=== PATIENT | male | born 1965 | race Caucasian/White ===

== ENCOUNTER 2019-07-09 08:28 | Outpatient (CLI) | payer BC, OTHER ==
[~2019-07-09 08:28] MED LIST: IBUP-1986 PO
[2019-07-09 09:24] LABS: PARTIAL THROMBOPLASTIN TIME 30 SECONDS (22-32)
[2019-07-09 09:30] LABS: BASOPHILS % (AUTO) 0.5 % (0-1); EOSINOPHILS # (AUTO) 0.1 X10'3 (0-0.9); EOSINOPHILS % (AUTO) 0.9 % (0-6); HEMATOCRIT 49.3 % (42.0-52.0); HEMOGLOBIN 17.4 g/dl (14.0-17.9); LYMPHOCYTES # (AUTO) 1.6 X10'3 (1.1-4.8); MEAN CORPUSCULAR HEMOGLOBIN 30.5 PG (27.0-31.0); MEAN CORPUSCULAR HGB CONC 35.2 g/dL (33.0-36.5); MEAN CORPUSCULAR VOLUME 86.7 FL (78-98); MEAN PLATELET VOLUME 7.8 FL (7.4-10.4); MONOCYTES # (AUTO) 0.5 X10'3 (0-0.9); MONOCYTES % (AUTO) 6.3 % (2-12); NEUTROPHILS # (AUTO) 5.3 X10'3 (1.8-7.7); NEUTROPHILS % (AUTO) 70.3 % (42-75); PLATELET COUNT 236 X10'3 (140-440); RED BLOOD COUNT 5.69 X10'6 (4.70-6.10); RED CELL DISTRIBUTION WIDTH 12.8 % (11.5-14.5); WHITE BLOOD COUNT 7.5 X10'3 (4.5-11.0)
[2019-07-09 09:32] LABS: ALANINE AMINOTRANSFERASE 48 U/L (12-78); ALBUMIN 4.3 G/DL (3.4-5.0); ALBUMIN/GLOBULIN RATIO 1.3 (1.1-1.5); ALKALINE PHOSPHATASE 57 IU/L (46-116); ANION GAP 10 (8-16); ASPARTATE AMINO TRANSFERASE 20 U/L (10-37); BLOOD UREA NITROGEN 16 MG/DL (7-18); BUN/CREATININE RATIO 16.3 (5.4-32.0); CHLORIDE 104 MMOL/L (99-107); CREATININE 0.98 MG/DL (0.60-1.10); GLUCOSE 104 MG/DL (70-104); POTASSIUM 3.8 MMOL/L (3.5-5.1); SODIUM 139 MMOL/L (135-145); TOTAL PROTEIN 7.6 G/DL (6.4-8.2); eGFR 80 ML/MIN
== END 2019-07-09 23:59 | disposition home or self-care (01) ==
LOC: LAB 08:28
PROVIDERS: ATTEND Otolaryngology
DX: D69.1 Qualitative platelet defects (principal)
CPT/HCPCS: 36415; 80053; 85025; 85576; 85610; 85730

== ENCOUNTER 2021-02-27 08:22 | Day surgery (SDC) | payer OTHER ==
[2021-02-20 09:12] LABS: BASOPHILS # (AUTO) 0.1 X10'3 (0-0.2); BASOPHILS % (AUTO) 0.8 % (0-1); EOSINOPHILS # (AUTO) 0.1 X10'3 (0-0.9); EOSINOPHILS % (AUTO) 1.7 % (0-6); LYMPHOCYTES # (AUTO) 2.1 X10'3 (1.1-4.8); LYMPHOCYTES % (AUTO) 24.6 % (21-51); MEAN CORPUSCULAR HEMOGLOBIN 30.1 PG (27.0-31.0); MEAN CORPUSCULAR HGB CONC 34.5 g/dL (33.0-36.5); MEAN CORPUSCULAR VOLUME 87.4 FL (78-98); MEAN PLATELET VOLUME 7.7 FL (7.4-10.4); MONOCYTES # (AUTO) 0.5 X10'3 (0-0.9); MONOCYTES % (AUTO) 5.9 % (2-12); NEUTROPHILS # (AUTO) 5.7 X10'3 (1.8-7.7); PRE OP HEMATOCRIT 53.3 % (42.0-52.0); PRE OP PLATELET COUNT 237 X10'3 (140-440); RED BLOOD COUNT 6.09 X10'6 (4.70-6.10); RED CELL DISTRIBUTION WIDTH 12.8 % (11.5-14.5)
[2021-02-20 09:17] LABS: ALBUMIN 4.4 G/DL (3.4-5.0); ALBUMIN/GLOBULIN RATIO 1.2 (1.1-1.5); ALKALINE PHOSPHATASE 65 IU/L (46-116); BLOOD UREA NITROGEN 17 MG/DL (7-18); CALCIUM 9.2 MG/DL (8.5-10.1); CHLORIDE 105 MMOL/L (99-107); CREATININE 1.13 MG/DL (0.60-1.10); PRE OP ALT 42 U/L (30-65); PRE OP ANION GAP 8 (8-16); PRE OP AST 21 U/L (10-37); PRE OP GLUCOSE 103 MG/DL (70-104); PRE OP POTASSIUM 5.3 MMOL/L (3.4-5.1); PRE OP SODIUM 141 MMOL/L (135-145); TOTAL CARBON DIOXIDE 28.1 MMOL/L (24-32); TOTAL PROTEIN 8.1 G/DL (6.4-8.2); eGFR 68 ML/MIN
[2021-02-20 09:40] LABS: PRE OP HEMOGLOBIN 18.4 g/dL (14.0-17.9)
[~2021-02-27] VITALS: Ht 177.8 cm; Wt 96.3 kg
[2021-02-27] VITALS (11 sets, daily range): BP systolic 127–149; BP diastolic 72–99
[~2021-02-27 08:22] MED LIST changes: +BUPIVAcaine/PF 2.5mg/ml (0.25%) 10ml vial ONE; +CHOL200012 PO; +CIDE600C PO; -IBUP-1986 PO; +LIDOcaine 1% 30ml preserv. free vial ONE; +MULT-1085 PO; +cefazolin/dext.iso 2gm/100ml IV ONE; +famotidine 20mg tablet PO ONE; +meperidine/PF 25mg/ml syringe IV PRN; +morphine 2 MG/ML inj. syringe IV PRN; +morphine 4 MG/ML inj SYRINge IV PRN; +ondansetron/PF 4mg/2ml inj IV PRN; +proCHLORperazine 10 MG/2 ml inj IV PRN; +ringers solution, lacted 1,000 ML IV SCH
[2021-02-27] MEDS ORDERED: glycopyrrolate 0.2mg/ml inj ONE (10:10)
[2021-02-27] MEDS ORDERED: sevoflurane 250ml liquid IH ONE (10:10)
[2021-02-27] MEDS ORDERED: neostigmine methylsulfate 1 MG/ML 10ml vial ONE (10:10)
[2021-02-27] MEDS ORDERED: BUPIVAcaine/PF 2.5mg/ml (0.25%) 10ml vial ONE (10:11)
[2021-02-27] MEDS ORDERED: LIDOcaine 1% 30ml preserv. free vial ONE (10:11)
[2021-02-27] MEDS ORDERED: fentaNYL/PF 50MCG/1 ML 2ML syringe ONE (10:21)
[2021-02-27] MEDS ORDERED: LIDOcaine 2% (20mg/ml) 5ml vial ONE (10:22)
[2021-02-27] MEDS ORDERED: meperidine/PF 25mg/ml syringe ONE (10:22)
[2021-02-27] MEDS ORDERED: propofol inj 20 ML IV ONE (10:22)
[2021-02-27] MEDS ORDERED: midazolam 1 mg/ML 2ml injection ONE (10:22)
[2021-02-27] MEDS ORDERED: rocuronium 10mg/ml inj IV ONE (10:24)
[2021-02-27] MEDS ORDERED: ondansetron/PF 4mg/2ml inj ONE (10:36)
[2021-02-27] MEDS ORDERED: dexamethasone sod phosphate 4mg/ml inj. ONE (10:36)
[2021-02-27] MEDS ORDERED: acetaminophen 1,000mg/100ml IV 100 ML IV ONE (12:02)
--- NOTE | 2021-02-27 12:30 | NUR ---
Received from OR via [facility], accompanied by Anesthesiologist DR MCKEON and report given by Anesthesiologist. PT DROWSY, DENIES PAIN, ABDOMEN W/3 LAP SITES W/BANDAIDS CDI. Addendum: 02/27/21 at 1256 by Malathi Leblanc RN Amended: Links added.
[2021-02-27] MEDS ORDERED: HYDROcodone/acetaminophen 5mg/325mg tablet PO PRN ×2 (12:40)
--- NOTE | 2021-02-27 14:50 | NUR ---
PT UP AND ABLE TO AMBULATE SAFELY, VOIDED APPROX 400 ML, TOLERATING FLUIDS, PAIN MEDICATION GIVEN FOR THE RIDE HOME, D/C INSTRUCTIONS GIVEN AND GONE OVER W/PT WHO VERBALIZED UNDERSTANDING. PT D/CD TO HOME VIA W/C TO PRIVATE VEHICLE W/O INCIDENT. Addendum: 02/27/21 at 1537 by Malathi Leblanc RN Amended: Links added.
== END 2021-02-27 14:50 | disposition home or self-care (01) ==
LOC: PAS 08:22
PROVIDERS: ATTEND Surgery
DX: K42.9 Umbilical hernia without obstruction or gangrene (principal); K40.91 Unilateral inguinal hernia, without obstruction or gangrene, recurrent; K43.0 Incisional hernia with obstruction, without gangrene; D17.6 Benign lipomatous neoplasm of spermatic cord; G47.33 Obstructive sleep apnea (adult) (pediatric); E66.01 Morbid (severe) obesity due to excess calories; Z68.30 Body mass index [BMI] 30.0-30.9, adult; Z20.822 Contact with and (suspected) exposure to COVID-19; Z79.899 Other long term (current) drug therapy; Z98.890 Other specified postprocedural states; Z80.9 Family history of malignant neoplasm, unspecified
CPT/HCPCS: 36415; 49585; 49651; 49655; 80053; 82948; 85025; 93005; C1781; J0131; J1100; J2001; J2175; J2250; J2405; J2704; J3010; J3490; U0003; U0005; Z7506; Z7508; Z7512; A4215; A4618; J2710; J7120

== ENCOUNTER 2022-08-06 06:06 | Day surgery (SDC) | payer OTHER ==
[~2022-08-06] VITALS: Ht 177.8 cm; Wt 97.1 kg
[2022-08-06] VITALS (12 sets, daily range): BP systolic 132–154; BP diastolic 82–99
[~2022-08-06 06:06] MED LIST changes: -BUPIVAcaine/PF 2.5mg/ml (0.25%) 10ml vial ONE; -LIDOcaine 1% 30ml preserv. free vial ONE; -cefazolin/dext.iso 2gm/100ml IV ONE; -meperidine/PF 25mg/ml syringe IV PRN; -morphine 2 MG/ML inj. syringe IV PRN; -morphine 4 MG/ML inj SYRINge IV PRN; -ondansetron/PF 4mg/2ml inj IV PRN; +oxymetazoline 15 ML nasal spray NS ONE; -proCHLORperazine 10 MG/2 ml inj IV PRN; +tranexamic acid inj. 1,000 MG in normal saline IV soln 100ML IV ONE
[2022-08-06] MEDS ORDERED: cocaine 4% topical solution 4ml bottle ONE (06:44)
[2022-08-06] MEDS ORDERED: LIDOCAINE 1%/EPI 1:100,000 inj. 10 ML multi-dose vial ONE (06:44)
[2022-08-06] MEDS ORDERED: mupirocin 2% ointment 22GM ONE (06:45)
[2022-08-06] MEDS ORDERED: oxymetazoline 15 ML nasal spray NS ONE ×2 (06:54→08:20)
[2022-08-06] MEDS ORDERED: LIDOcaine 1% 30ml preserv. free vial ONE (07:03)
[2022-08-06] MEDS ORDERED: LIDOCAINE 2% w/EPI 1:100:000 30mL injection MDV**cath lab 1 only ONE (07:10)
[2022-08-06] MEDS ORDERED: tranexamic acid inj. 1,000 MG in normal saline IV soln 100ML IV ONE (07:10)
[2022-08-06] MEDS ORDERED: sevoflurane 250ml liquid IH ONE (08:13)
[2022-08-06] MEDS ORDERED: propofol inj 20 ML IV ONE (08:16)
[2022-08-06] MEDS ORDERED: midazolam 1 mg/ML 2ml injection ONE (08:16)
[2022-08-06] MEDS ORDERED: fentaNYL/PF 50MCG/1 ML 2ML syringe ONE (08:16)
[2022-08-06] MEDS ORDERED: cocaine 4% topical solution 4ml bottle TP ONE (08:20)
[2022-08-06] MEDS ORDERED: dexamethasone sod phosphate 4mg/ml inj. ONE (08:29)
[2022-08-06] MEDS ORDERED: mupirocin 2% ointment 22GM TP ONE (08:45)
[2022-08-06] MEDS ORDERED: ondansetron/PF 4mg/2ml inj IV PRN (09:00)
[2022-08-06] MEDS ORDERED: morphine 4 MG/ML inj SYRINge IV PRN (09:00)
[2022-08-06] MEDS ORDERED: ringers solution, lacted 1,000 ML IV SCH (09:00)
[2022-08-06] MEDS ORDERED: meperidine/PF 25mg/ml syringe IV PRN ×3 (09:00)
[2022-08-06] MEDS ORDERED: proCHLORperazine 10 MG/2 ml inj IV PRN (09:00)
[2022-08-06] MEDS ORDERED: morphine 2 MG/ML inj. syringe IV PRN (09:00)
[2022-08-06] MEDS ORDERED: ceFAZolin 1000mg inj ONE ×2 (09:08)
[2022-08-06] MEDS ORDERED: ondansetron/PF 4mg/2ml inj ONE (09:09)
--- NOTE | 2022-08-06 09:24 | NUR ---
Received from OR via [facility], accompanied by Anesthesiologist DR CARRASCO and report given by Anesthesiologist AND ETCHER APPRENTICE. PT DROWSY, DENIES PAIN, LEFT NARE W/COTTONOID IN PLACE, NO DRAINAGE OR BLEEDING. Addendum: 08/06/22 at 0959 by Malathi Leblanc RN Amended: Links added.
[2022-08-06] MEDS ORDERED: oxymetazoline 15 ML nasal spray NS SCH (09:32)
[2022-08-06] MEDS ORDERED: oxymetazoline 15 ML nasal spray NS PRN (09:35)
[2022-08-06] MEDS ORDERED: mupirocin 2% nasal ointment 1gm UD NS SCH ×2 (10:12)
[2022-08-06] MEDS ORDERED: salt irrigation nasal spray 45 ML SPRAY NS SCH (11:00)
--- NOTE | 2022-08-06 11:34 | NUR ---
PT UP AND ABLE TO AMBULATE SAFELY, VOIDED. D/C INSTRUCTIONS GIVEN AND GONE OVER W/PT WHO DEMONSTRATES AND VERBALIZES UNDERSTANDING. PT D/CD TO HOME VIA W/C TO PRIVATE VEHICLE. Addendum: 08/06/22 at 1215 by Malathi Leblanc RN Amended: Links added.
== END 2022-08-06 11:34 | disposition home or self-care (01) ==
LOC: PAS 06:06
PROVIDERS: ATTEND Otolaryngology
DX: J32.9 Chronic sinusitis, unspecified (principal); J34.89 Other specified disorders of nose and nasal sinuses; J33.8 Other polyp of sinus; G47.30 Sleep apnea, unspecified; M19.90 Unspecified osteoarthritis, unspecified site; E66.9 Obesity, unspecified; Z68.30 Body mass index [BMI] 30.0-30.9, adult; Z20.822 Contact with and (suspected) exposure to COVID-19; Z79.899 Other long term (current) drug therapy; Z98.890 Other specified postprocedural states; Z72.89 Other problems related to lifestyle
CPT/HCPCS: 31255; 31267; 36415; 61782; 82948; 87070; 87075; 87102; 87635; 93005; A6402; C9250; C9803; J0690; J1100; J2250; J2405; J2704; J3010; J3490; J7030; J7050; J7120; U0003; U0005; Z7506; Z7508; Z7512; A4618; A6449; A7000

== ENCOUNTER 2023-06-03 06:08 | Day surgery (SDC) | payer OTHER ==
[2023-06-03] VITALS (11 sets, daily range): BP systolic 101–124; BP diastolic 65–82; PULSE 50–67; RESP 12–16; TEMP 97.8; O2SAT 93–99
[~2023-06-03] VITALS: Ht 177.8 cm; Wt 98.7 kg
[~2023-06-03 06:08] MED LIST changes: -famotidine 20mg tablet PO ONE; -oxymetazoline 15 ML nasal spray NS ONE; -ringers solution, lacted 1,000 ML IV SCH; -tranexamic acid inj. 1,000 MG in normal saline IV soln 100ML IV ONE
[2023-06-03] MEDS ORDERED: normal saline 1,000 ML IV SCH (06:30)
[2023-06-03] MEDS ORDERED: diphenhydrAMINE 25mg capsule PO PRN (06:30)
[2023-06-03] MEDS ORDERED: LORazepam 0.5 MG tablet PO PRN (06:30)
[2023-06-03 07:08] LABS: BASOPHILS # (AUTO) 0.1 X10'3 (0-0.2); EOSINOPHILS # (AUTO) 0.3 X10'3 (0-0.9); EOSINOPHILS % (AUTO) 4.7 % (0-6); HEMATOCRIT 47.7 % (42.0-52.0); HEMOGLOBIN 16.6 g/dl (14.0-17.9); LYMPHOCYTES % (AUTO) 33.7 % (21-51); MEAN CORPUSCULAR HEMOGLOBIN 30.3 PG (27.0-31.0); MEAN CORPUSCULAR HGB CONC 34.9 g/dL (33.0-36.5); MEAN CORPUSCULAR VOLUME 86.8 FL (78-98); MEAN PLATELET VOLUME 7.4 FL (7.4-10.4); MONOCYTES # (AUTO) 0.5 X10'3 (0-0.9); MONOCYTES % (AUTO) 8.6 % (2-12); NEUTROPHILS # (AUTO) 3.1 X10'3 (1.8-7.7); PLATELET COUNT 197 X10'3 (140-440); RED BLOOD COUNT 5.49 X10'6 (4.70-6.10); RED CELL DISTRIBUTION WIDTH 13.1 % (11.5-14.5); WHITE BLOOD COUNT 5.9 X10'3 (4.5-11.0)
[2023-06-03] MEDS ORDERED: VIT1LOZE (07:13)
[2023-06-03] MEDS ORDERED: MIRT-142 PO (07:13)
[2023-06-03] MEDS ORDERED: AZEL137S4 BOTHNARES (07:13)
[2023-06-03] MEDS ORDERED: ATRNS (07:13)
[2023-06-03] MEDS ORDERED: GABA100C PO (07:13)
[2023-06-03] MEDS ORDERED: MUPI22OI30 TP (07:13)
[2023-06-03] MEDS ORDERED: MULTIVITAMIN GUMMY (07:13)
[2023-06-03] MEDS ORDERED: LOSA-415 PO (07:13)
[2023-06-03] MEDS ORDERED: Vitamin D (07:13)
[2023-06-03] MEDS ORDERED: AMLO5TAB PO (07:13)
[2023-06-03] MEDS ORDERED: LOSA50TA64 PO (07:13)
[2023-06-03 07:20] LABS: ALBUMIN 3.6 G/DL (3.4-5.0); ANION GAP 9 (8-16); BLOOD UREA NITROGEN 17 MG/DL (7-18); BUN/CREATININE RATIO 17.5 (10.0-20.0); CALCIUM 9.3 MG/DL (8.5-10.1); CHLORIDE 104 MMOL/L (99-107); CREATININE 0.97 MG/DL (0.60-1.10); GLUCOSE 111 MG/DL (70-104); POTASSIUM 4.1 MMOL/L (3.5-5.1); SODIUM 137 MMOL/L (135-145); TOTAL CARBON DIOXIDE 24.3 MMOL/L (24-32); eCRCL 87 ML/MIN; eGFR 80 ML/MIN
[2023-06-03 07:24] LABS: PROTHROMBIN TIME 11.2 SECONDS (9.0-12.0)
[2023-06-03] MEDS ORDERED: midazolam 1 mg/ML 2ml injection ONE ×2 (07:33→08:44)
[2023-06-03] MEDS ORDERED: fentaNYL/PF 50MCG/1 ML 2ML syringe ONE (07:33)
[2023-06-03] MEDS ORDERED: iohexol 350MG/ML 100ml bottle IV ONE (07:33)
[2023-06-03] MEDS ORDERED: iohexol 350 MG/ML 50ML vial IV ONE (07:33)
[2023-06-03] MEDS ORDERED: heparin 1,000unit/ml 10ml vial 10 ML ONE (07:33)
[2023-06-03] MEDS ORDERED: verapamil 2.5 mg/ml inj IV ONE (07:33)
[2023-06-03] MEDS ORDERED: LIDOcaine 1% (10mg/ml) 2ml vial ONE (07:33)
[2023-06-03] MEDS ORDERED: nitroGLYCERIN 500mcg/5mL D5W 10 ML IV ONE (07:36)
[2023-06-03 08:57] LABS: ISTAT HGB ART 15.3 g/dl (14.0-17.9); ISTAT Hct ART 45 %PCV (42-52); ISTAT O2 SATURATION ARTERIAL 98 % (95-98); ISTAT SOURCE ART
[2023-06-03 09:31] LABS: ISTAT Hct MIX 44 %PCV (42-52); ISTAT O2 SATURATION MIX VENOUS 74 % (60-80); ISTAT SOURCE VEN
== END 2023-06-03 13:53 | disposition home or self-care (01) ==
LOC: SSTAY O 06:08
PROVIDERS: ATTEND Internal Medicine Cardiovascular Disease
DX: I20.9 Angina pectoris, unspecified (principal); I10 Essential (primary) hypertension; G47.33 Obstructive sleep apnea (adult) (pediatric); Z79.899 Other long term (current) drug therapy
CPT/HCPCS: 36415; 76937; 80048; 82803; 85014; 85025; 85610; 93005; 93460; 99152; 99153; J1644; J2250; J3010; J3490; J7030; Q0163; Q9967; A6258; A6402; C1725; C1751; C1894